=== PATIENT | male | born 1960 | race Caucasian/White ===

== ENCOUNTER 2016-11-13 06:35 | Emergency (ER) | payer OTHER ==
[2016-11-13] MEDS ORDERED: ATENOLOL 50 MG TABLET PO ONE (06:54)
[2016-11-13] MEDS ORDERED: NITROGLYCERIN 0.4 MG/TAB BTL SL ONE (06:54)
[2016-11-13] MEDS ORDERED: ATENOLOL 50 MG TABLET ONE (06:59)
[2016-11-13 07:05] LABS: Hematocrit 44.8 % (42.0-52.0); Hemoglobin 16.1 gm/dL (13.5-18.0); Mean Cell Volume 86.7 fl (78-100); Mean Corpuscular Hemoglobin 31.1 pg (27-31); Mean Corpuscular Hgb Conc 35.9 g/dl (32-36); Mean Platelet Volume 9.9 fl (6.0-9.5); Neutrophil # 6.5 K/mm3 (1.3-6.0); Neutrophil % 69.1 % (42-75.0); Platelet Count 230 K/mm3 (150-450); Red Blood Count 5.17 M/mm3 (4.7-6.0); Red Cell Distribution Width 11.7 % (11.5-14.0); White Blood Count 9.4 K/mm3 (4.0-10.5)
--- NOTE | 2016-11-13 07:06 | ERNOTE ---
Dyspnea - General Presenting Symptoms: shortness of breath Time Seen by Provider: 11/13/16 06:39 Source: patient Exam Limitations: no limitations - Immun/Allergies/Home Medications Immunizations: IMMUNIZATION HX Immunizations Up to Date Yes History of Influenza Vaccine No Hx Pneumococcal Vaccination No Allergies/Adverse Reactions: Allergies No Known Allergies Allergy (Verified 11/13/16 06:48) Home Medications: HOME MEDICATIONS Atenolol [Tenormin] 100 mg PO DAILY 11/13/16 [Last Taken Unknown] Hydralazine HCl 100 mg PO BID 11/13/16 [Last Taken Unknown] - History of Present Illness Narrative: Patient is here for shortness of breath and chest pain. About a week ago he started to have URI symptoms mainly nasal congestions ( which is getting better). Yesterday morning he took his first dose of hydralazine around 06:00 and shortly afterwards started to get short of breath. His doctor has been working with him on his blood pressure. He used to take atenolol but his blood pressure continued to be in the 180's systolic. About a week ago he was told to to cut his atenolol in half and add another pill (does not know the name) but his blood pressure continued to be elevated, so he got off all the medications and started on the hydralazine yesterday am. He has been having intermittent chest pain for quite a while. It seems mostly dependent on arm position, does not come with exercise. He swims a mile every morning and this morning 'could not do it' so he came to the ER as he has a strong family history of heart disease. The pain has currently resolve Initiating event: Reports: upper resp illness Frequency of episodes: Reports: occassional episodes Modifying Factors - (Improves): Reports: rest Modifying Factors (Worsens): Reports: activity Review of Systems - Review of Systems Constitutional: Absent: fever, chills EYE: Absent: double vision ENT: Present: nose congestion. Absent: sore throat Respiratory: Present: See HPI, shortness of breath, cough Cardiology: Present: See HPI, chest pain Gastrointestinal/Abdominal: Absent: nausea, vomiting, diarrhea, abdominal pain Genitourinary: Present: no symptoms reported Skin: Absent: rash Neurological: Absent: headache - Patient's Past Medical History Patient History - Medical: No pertinent hx Patient History - Cardiac/Respiratory: Hypertension Patient History - Cancer: No Hx of Cancer Patient History - Surgical Procedures: No surgical history Patient History - Other: None - Social History Psych History: No pertinent hx Smoking Status: Current some day smoker Have you smoked in the past 12 months: Yes - cigars Do you dip or chew tobacco: No Alcohol Use: heavy Drug Use: none - Immunizations Immunizations Up to Date: Yes Hx Pneumococcal Vaccination: No History of Influenza Vaccine: No Physical Exam - Physical Exam General Appearance: Present: wd/wn, alert, no apparent distress, anxious Eye Exam: Normal inspection: bilateral, PERRL: bilateral Ears, Nose, Throat: Present: normal ENT inspection, nasal congestion, normal pharynx Neck: Absent: lymphadenopathy (R), lymphadenopathy (L) Respiratory: Present: no respiratory distress, normal breath sounds, chest nontender, lungs clear Cardiovascular/Chest: Present: no murmur, tachycardia Extremity Exam: Present: no edema Neurological Exam: Present: alert, oriented, normal mood/affect Skin Exam: Present: normal color, warm/dry ED Progress - Results and Orders Patient's Lab Results:: I have reviewed the patient's lab results. - Vital Signs Patient's Vital Signs:: I have reviewed the patient's vital signs. Vital Signs: Vital Signs 11/13/16 06:39 Temperature 35.6 C L Pulse Rate 105 H Respiratory 10 L Rate Blood Pressure 229/123 O2 Sat by Pulse 96 Oximetry - EKG EKG: NSR - sinustachy, poor R progression, nonspecific ST T wave changes EKG read: Interp. by me - Progress/Reassessment Chief Complaint: Dyspnea Progress Note-Subjective: 11/13/16 07:40 feeling better, discussed results, BP improved encouraged patient to discuss the blood pressure medication with his PCP as I doubt that he was suppose to stop all other meds prior to taking hydralazine Departure Clinical Impression: Chest pain Qualifiers: Chest pain type: unspecified Qualified Code(s): R07.9 - Chest pain, unspecified Hypertension Qualifiers: Hypertension type: essential hypertension Qualified Code(s): I10 - Essential ( primary) hypertension - Departure Condition: Good Instructions: Hypertension, [id number], Chest Pain Observation Additional Instructions: call your doctor today and discuss your blood pressure medications you were given one dose of atenolol 100mg in the ER today Referrals: Leatha Brower MD [Non Staff Physicians] -
--- OUTSIDE RECORDS SUMMARY | 2016-11-13 07:17 | XMS REPORT | Continuity of Care Document ---
:1960 Author Organization [facility] ([facility]) Address [address] [place] [address] Phone [phone] Care Team Providers Name Role Phone Unavailable Primary Care Provider Unavailable Source Comments This disclosure is being made pursuant to the Care Everywhere program, applicable federal and state laws, and may not contain all informaitonavailable regarding this patient.[facility] ([facility]) Active Allergies and Adverse Reactions Not on File Current Medications Not on file Active Problems Not on file Social History Tobacco Use Types Packs/Day Years Used Date Never Assessed Plan of Care Health Maintenance Due Date Last Done Comments HCV Screening 1960 Hepatitis B Vaccine (1 of 3 - Primary Series) 1960 Tdap Vaccine 1971 Lipid Disorder Screening 1978 MMR Vaccine 1978 Td Vaccine 1978 Colonoscopy 2010 Prostate Cancer Screening 2010 Influenza Vaccine: Seasonal (#1) 04/17/2016 Results from Last 3 Months Not on file
[2016-11-13 07:25] LABS: ALT 67 U/L (19-67); AST 23 U/L (0-48); Albumin * 3.7 gm/dl (3.4-5.0); Alkaline Phosphatase * 56 U/L (50-170); Anion Gap 15.1 mmol/L (6.8-13.8); BNP * 64 pg/mL (5-175); BUN/Creatinine Ratio 14.4 (9.0-21.6); Bilirubin, Total 0.4 mg/dL (0.0-1.1); Blood Urea Nitrogen 13 mg/dL (6-23); Calcium * 9.1 mg/dL (7.9-10.9); Carbon Dioxide 24.6 mmol/L (24-32.6); Chloride 102 mmol/L (97-106); Glucose * 164 mg/dL (70-110); Potassium 3.7 mmol/L (3.4-4.6); Sodium 138 mmol/L (132-142); Total Protein 7.4 gm/dL (6.2-8.2); Troponin I Less than 0.017 ng/ml (0.00-0.10)
[2016-11-13 08:00] VITALS: BP 151/88
== END 2016-11-13 07:59 | disposition home or self-care (01) ==
LOC: ER 06:35
DX: R07.9 Chest pain, unspecified (principal); I10 Essential (primary) hypertension; Z72.0 Tobacco use

== ENCOUNTER 2016-12-05 07:15 | Emergency (ER) | payer OTHER ==
[2016-12-05 07:21] VITALS: BP 147/100
--- OUTSIDE RECORDS SUMMARY | 2016-12-05 07:28 | XMS REPORT | Continuity of Care Document ---
:1960 Author Organization [facility] ([facility]) Address [address] [place] [address] Phone [phone] Care Team Providers Name Role Phone Unavailable Primary Care Provider Unavailable Source Comments This disclosure is being made pursuant to the Care Everywhere program, applicable federal and state laws, and may not contain all informaitonavailable regarding this patient.[facility] ([facility]) Active Allergies and Adverse Reactions Not on [...]
== END 2016-12-05 07:25 | disposition home or self-care (01) ==
LOC: ER 07:15
DX: Z13.6 Encounter for screening for cardiovascular disorders (principal)

== ENCOUNTER 2016-12-08 07:58 | Emergency (ER) | payer OTHER ==
[2016-12-08 08:10] VITALS: BP 159/92
--- OUTSIDE RECORDS SUMMARY | 2016-12-08 08:17 | XMS REPORT | Continuity of Care Document ---
:1960 Author Organization [facility] ([facility]) Address [address] [place] [address] Phone [phone] Care Team Providers Name Role Phone Unavailable Primary Care Provider Unavailable Source Comments This disclosure is being made pursuant to the Care Everywhere program, applicable federal and state laws, and may not contain all informaitonavailable regarding this patient.[facility] ([facility]) Active Allergies and Adverse Reactions Not [...]
== END 2016-12-08 08:14 | disposition home or self-care (01) ==
LOC: ER 07:58
DX: Z13.6 Encounter for screening for cardiovascular disorders (principal)